=== PATIENT | male | born 1945 | race Caucasian/White ===

== ENCOUNTER 2020-11-28 10:11 | Emergency (ER) | payer MEDICARE, OTHER ==
[2020-11-28 11:51] LABS: BASOPHIL 0.6 % (0-2); EOSINOPHIL 0.2 % (0-7); HCT 34.4 % (42.0-52.0); HGB 11.8 g/dl (13.2-18.0); LYMPHOCYTE 7.4 % (15-48); MCH 30.6 pg (25.0-31.0); MCHC 34.3 g/dL (32.0-36.0); MCV 89.1 fL (78.0-100.0); MPV 10.3 fL (6.0-9.5); NEUTROPHIL 77.7 % (41-80); NRBC 0; PLT 279 K/uL (150-400); RBC 3.86 M/uL (4.70-6.00); RDW 13.4 % (11.5-14.0); WBC 12.4 K/uL (4.0-10.5)
[2020-11-28 12:16] LABS: ALBUMIN 2.8 g/dL (3.4-5.0); BILIRUBIN - TOTAL 0.5 mg/dL (0.2-1.0); BUN/CREAT RATIO (CALC) 27.4 RATIO; CREATININE 0.95 mg/dL (0.67-1.17); GLOBULIN (CALCULATION) 3.5 g/dL; POTASSIUM 3.3 mmol/L (3.5-5.1); TOTAL PROTEIN 6.3 g/dL (6.4-8.2)
[2020-11-28] MEDS ORDERED: ZOFRAN4 M1 PO (14:19)
== END 2020-11-28 15:00 | disposition home or self-care (01) ==
LOC: FER 10:11
PROVIDERS: Emergency Medicine
DX: R19.7 Diarrhea, unspecified (principal); E86.0 Dehydration; E87.6 Hypokalemia; R11.0 Nausea; R63.0 Anorexia; I10 Essential (primary) hypertension; Z79.899 Other long term (current) drug therapy
CPT/HCPCS: 36415; 80053; 85025; J2405; J7030